=== PATIENT | female | born 1985 | race Caucasian/White ===

== ENCOUNTER → 2021-06-25 | Outpatient (CLI) | payer OTHER ==
--- NOTE | 2021-06-25 11:37 | US ---
EXAMINATION TYPE: US pelvis complete transvag DATE OF EXAM: 06/25/2021 COMPARISON: NONE CLINICAL HISTORY: N94.6 DYSMENORRHEA. Copper IUD x 12 years, left side pelvic pain now; ; irregul ar menstrual period TECHNIQUE: Transvaginal (TV) and Transabdominal (TA) . Transabdominal sonographic images of the pel vis were acquired. Transvaginal sonographic images were medically necessary to better assess the fol lowing anatomy: endometrium and IUD placement Date of LMP: 06/06/2021 EXAM MEASUREMENTS: Uterus: 8.4 x 5.2 x 3.7 cm Endometrial Stripe: 0.7 cm Right Ovary: 2.3 x 3.3 x 1.5 cm Left Ovary: 3.5 x 2.6 x 2.9 cm 1. Uterus: Anteverted 2. Endometrium: thickness size appears wnl and is by thin anechoic fluid area in upper end ometrium = 0.7 x 1.6 x 0.1cm. IUD placement is not in upper normal endometrial location, rather it is located in mid and LES. 3. Right Ovary: multifollicular with largest as involuting complex cyst with peripheral ring of colo r flow =1.9 x 1.5 x 1.4cm by TV US 4. Left Ovary: multifollicular with largest noted as complex ovarian cyst = 3.1 x 2.8 x 2.2cm Spectral, color and waveform doppler imaging shows good arterial and venous flow within the ovaries ; there is no evidence for ovarian torsion. 5. Bilateral Adnexa: wnl 6. Posterior cul-de-sac: moderate amount of free fluid seen here and is noted both TA and (TV US = 2 .1 x 1.8 x 1.9 x 0.523 = 3.8ml). IMPRESSION: 1. Complex ovarian cysts seen bilaterally may reflect hemorrhagic cysts. This can be confirmed with f ollow-up study in 6 weeks. 2. IUD placement as noted. 3. Moderate amount of free fluid within the cul-de-sac.
== END | disposition home or self-care (01) ==
LOC: RADUSWWP 10:21
PROVIDERS: ATTEND Obstetrics & Gynecology
DX: N83.291 Other ovarian cyst, right side (principal); N83.292 Other ovarian cyst, left side; Z97.5 Presence of (intrauterine) contraceptive device
CPT/HCPCS: 76830; 76856

== ENCOUNTER → 2021-06-25 | Outpatient (CLI) | payer OTHER ==
[2021-06-25 18:27] LABS: Basophils # (A) 0.03 X 10*3/uL (0.00-0.10); Basophils % (A) 0.4 %; Eosinophils # (A) 0.04 X 10*3/uL (0.04-0.35); Eosinophils % (A) 0.5 %; HCT 37.5 % (37.2-46.3); HGB 11.9 g/dL (12.0-15.0); Immature Grans, Automated 0.1 %; Lymphocytes # (A) 2.92 X 10*3/uL (0.90-5.00); Lymphocytes % (A) 35.7 %; MCH 28.7 pg (27.0-32.0); MCHC 31.7 g/dL (32.0-37.0); MCV 90.6 fL (80.0-97.0); Mean Platelet Volume 9.9 fL (9.5-12.2); Monocytes % (A) 4.9 %; NRBC Per 100 WBC 0 /100 WBCS (0.0-0.0); Neutrophils # (A) 4.78 X 10*3/uL (1.80-7.70); Neutrophils % (A) 58.4 %; Platelet Count 303 X 10*3/uL (140-440); RBC 4.14 X 10*6/uL (4.10-5.20); RDW 14.3 % (11.5-14.5); WBC 8.18 X 10*3/uL (4.50-10.00)
[2021-06-25 22:15] LABS: ALT 10 U/L (8-44); AST 16 U/L (13-35); African American GFR (CKD) 118.2 (60.0-200.0); Albumin/Globulin Ratio 2.18 (1.60-3.17); Alkaline Phosphatase 51 U/L (41-126); BUN/Creat Ratio 14.38 Ratio (12.00-20.00); Blood Urea Nitrogen 10.9 mg/dL (9.0-27.0); Calcium 9.8 mg/dL (8.7-10.3); Carbon Dioxide 21.1 mmol/L (20.0-27.5); Chloride 103 mmol/L (96-109); Chol/HDL Ratio 2.35 Ratio; Globulin 2.3 g/dL (1.6-3.3); Glucose 83 mg/dL (70-110); LDL Cholesterol,Calculated 88.4 mg/dL (0.0-131.0); Potassium 4.4 mmol/L (3.5-5.5); Sodium 138 mmol/L (135-145); Total Protein 7.2 g/dL (6.2-8.2); VLDL Calculation 15.72 mg/dL (5.00-40.00)
== END | disposition home or self-care (01) ==
LOC: LABWHC1 11:05
PROVIDERS: ATTEND Nurse Practitioner
DX: Z00.00 Encounter for general adult medical examination without abnormal findings (principal); G89.4 Chronic pain syndrome; R41.840 Attention and concentration deficit; Z86.39 Personal history of other endocrine, nutritional and metabolic disease; Z86.2 Personal history of diseases of the blood and blood-forming organs and certain disorders involving the immune mechanism
CPT/HCPCS: 36415; 80053; 80061; 82306; 83036; 84443; 85025; 86140

== ENCOUNTER → 2021-08-15 | Outpatient (CLI) | payer OTHER ==
[2021-08-15 18:12] LABS: Basophils # (A) 0.04 X 10*3/uL (0.00-0.10); Basophils % (A) 0.6 %; Eosinophils # (A) 0.05 X 10*3/uL (0.04-0.35); Eosinophils % (A) 0.7 %; HCT 36.2 % (37.2-46.3); HGB 11.5 g/dL (12.0-15.0); Immature Grans, Automated 0.3 %; Lymphocytes # (A) 2.42 X 10*3/uL (0.90-5.00); Lymphocytes % (A) 34.4 %; MCH 28.9 pg (27.0-32.0); MCHC 31.8 g/dL (32.0-37.0); Mean Platelet Volume 9.9 fL (9.5-12.2); Monocytes # (A) 0.42 X 10*3/uL (0.20-1.00); NRBC Per 100 WBC 0 /100 WBCS (0.0-0.0); Neutrophils # (A) 4.08 X 10*3/uL (1.80-7.70); Platelet Count 332 X 10*3/uL (140-440); RBC 3.98 X 10*6/uL (4.10-5.20); RDW 15.1 % (11.5-14.5); WBC 7.03 X 10*3/uL (4.50-10.00)
== END | disposition home or self-care (01) ==
LOC: LABPAT 11:03
PROVIDERS: ATTEND Obstetrics & Gynecology
DX: Z01.812 Encounter for preprocedural laboratory examination (principal)
CPT/HCPCS: 85025

== ENCOUNTER → 2021-08-15 | Outpatient (CLI) | payer OTHER ==
--- NOTE | 2021-08-15 12:55 | US ---
EXAMINATION TYPE: US pelvis complete transvag DATE OF EXAM: 08/15/2021 COMPARISON: 06/25/21 CLINICAL HISTORY: N83.299 JAH COMPLEX OVARIAN CYST. B/L COMPLEX CYST FOLLOW UP, OCCASIONAL LT ADNEXA PAIN TECHNIQUE: Transvaginal (TV) and Transabdominal (TA) . Transabdominal sonographic images of the pel vis were acquired. Transvaginal sonographic images were medically necessary to better assess the fol lowing anatomy: Ovaries Date of LMP: 07/31/2021 EXAM MEASUREMENTS: Uterus: 9.4 x 3.8 x 5.0 cm Endometrial Stripe: 1.1 cm Right Ovary: 3.8 x 3.4 x 2.5 cm Left Ovary: 4.0 x 2.9 x 1.8 cm 1. Uterus: Anteverted wnl 2. Endometrium: wnl 3. Right Ovary: Multiple follicles seen, largest appears complex melani. approx. 1.7 x 1.6 x 1.9 cm 4. Left Ovary: multiple follicles seen, largest melani. approx. 1.1 cm 5. Bilateral Adnexa: wnl 6. Posterior cul-de-sac: wnl IUD appears in lower uterine segment, multiple follicles noted on b/l ovaries, fluid noted in cervix area IMPRESSION: 1. Intrauterine device appears in the lower uterine segment correlate clinically for positioning. Sma ll amount of fluid in the cervix noted. 2. There is a complex cyst measuring 1.9 cm within the right ovary which is nonspecific. Hemorrhagic cyst most likely etiology. Other etiologies are not excluded follow-up ultrasound in 6-8 weeks recomm ended for resolution.
== END | disposition home or self-care (01) ==
LOC: RADUSWWP 11:00
PROVIDERS: ATTEND Obstetrics & Gynecology
DX: N83.201 Unspecified ovarian cyst, right side (principal); Z97.5 Presence of (intrauterine) contraceptive device
CPT/HCPCS: 76830; 76856

== ENCOUNTER 2021-08-21 06:32 | Day surgery (SDC) | payer MEDICAID ==
--- NOTE | 2021-08-20 19:42 | P.HPOB ---
History of Present Illness H&P Date: 08/20/21 Chief Complaint: Family planning This is a 36 y.o. female, 1, para 1, who presents for laparoscopic bilateral tubal ligation via fulgaration along with removal of Paragard IUD for family planning. She has had Paragard IUD in place for 12 years and recent ultrasound has shown it is in the lower uterine segment. In addition, she complains of pelvic pain. Her menses are occurring monthly and lasting 8-10 days. She did receive cardiac clearance for surgery due to heart palpatations. OB Hx: . History of 1 vaginal delivery. [employer] Admin Hx: No history of STDs Social Hx: Single. Works as [employer]. Review of Systems Constitutional: Denies chills, Denies fever Eyes: denies blurred vision, denies pain Ears, nose, mouth and throat: Denies headache, Denies sore throat Cardiovascular: Denies chest pain, Denies shortness of breath Respiratory: Denies cough Gastrointestinal: Reports abdominal pain Genitourinary: Reports dysmenorrhea, Reports menorrhagia, Reports pelvic pain Menstruation: Reports menses 8 or > days Musculoskeletal: Reports low back pain, Reports myalgias Integumentary: Denies pruritus, Denies rash Neurological: Denies numbness, Denies weakness Psychiatric: Reports anxiety, Reports irritability Endocrine: Reports weight change Past Medical History Past Medical History: Osteoarthritis (OA) Additional Past Medical History / Comment(s): hx. heart palpitations, anemia History of Any Multi-Drug Resistant Organisms: None Reported Additional Past Surgical History / Comment(s): Pilonidal cystectomy; had epidural for childbirth Past Anesthesia/Blood Transfusion Reactions: No Reported Reaction Additional Past Anesthesia/Blood Transfusion Reaction / Comment(s): no family hx. of anesthesia problems Past Psychological History: ADD/ADHD Smoking Status: Former smoker Past Alcohol Use History: Occasional Past Drug Use History: None Reported - Past Family History Mother Family Medical History: No Reported History Medications and Allergies Home Medications Medication Instructions Recorded Confirmed Type Ibuprofen [Advil] 200 mg PO Q6HR PRN 08/17/21 08/21/21 History Allergies Allergy/AdvReac Type Severity Reaction Status Date / Time peanut Allergy hives,itchi Verified 08/21/21 06:56 ng Penicillins Allergy rash,hives, Verified 08/21/21 06:56 vomiting Exam Osteopathic Statement: *. No significant issues noted on an osteopathic structural exam other than those noted in the History and Physical/Consult. HEENT: within normal limits Heart: regular rate and rhythm Lungs: clear to auscultation bilaterally Abdomen: soft, non-tender Pelvic: uterus anteverted, non-tender, left adnexa sl. tender with no adnexal masses bilaterally Extremities: neg. Brooke's. Assessment and Plan (1) Family planning Current Visit: No Status: Acute Code(s): Z30.09 - ENCOUNTER FOR [facility] AND ADVICE ON CONTRACEPTION SNOMED Code(s): 109541692 Plan: Proceed with laparoscopic bilateral tubal ligation via fulgaration and removal of IUD. I have discussed the risks, benefits, and alternative therapies for the above- mentioned procedure and for both sedation/anesthesia as well as necessary blood products administration, if indicated, as they pertain to this patient. The patient has indicated her understanding and acceptance of the risks and procedures discussed.
[~2021-08-21 06:32] MED LIST: DEXAMETHASONE SOD PHOSPHATE 4 MG/ML 1 ML VIAL IV ONE; LACTATED RINGERS 1,000 ML IV SCH; LIDOCAINE 1% (10MG/ML) FOR IV START INTRADERMA PRN; ONDANSETRON 4 MG/2 ML VIAL IVP ONE; Pre Op ABX Message 1 EACH MISC MISCELLANE ONE; SCOPOLAMINE 1 MG/72 HR PATCH TRANSDERM ONE
[2021-08-21] MEDS ORDERED: GLYCOPYRROLATE 0.2 MG/ML 2 ML VIAL ONE (07:25)
[2021-08-21] MEDS ORDERED: NEOSTIGMINE 1 MG/ML 10 ML VIAL ONE (07:25)
[2021-08-21] MEDS ORDERED: ROCURONIUM 10 MG/ML (5 ML VIAL) IV ONE (07:25)
[2021-08-21] MEDS ORDERED: SUCCINYLCHOLINE CHLORIDE 100 MG/5 ML SYR IV ONE (07:25)
[2021-08-21] MEDS ORDERED: PROPOFOL 10 MG/ML 20 ML VIAL IV ONE (07:25)
[2021-08-21] MEDS ORDERED: MIDAZOLAM 2 MG/2 ML VIAL ONE (07:25)
[2021-08-21] MEDS ORDERED: KETOROLAC 15 MG/ML 1 ML VIAL ONE (07:25)
[2021-08-21] MEDS ORDERED: fentaNYL (PF) 50 MCG/ML 2 ML AMP ONE (07:25)
[2021-08-21] MEDS ORDERED: BUPIVACAINE (PF) 0.5% 30 ML VIAL SQ ONE ×2 (07:56)
--- NOTE | 2021-08-21 08:18 | P.OP ---
Date of Procedure: 08/21/21 Preoperative Diagnosis: Family planning Postoperative Diagnosis: Same Procedure(s) Performed: Laparoscopic bilateral tubal ligation via fulguration Removal of IUD Anesthesia: HUSSAIN Surgeon: Ambreen Pickett Estimated Blood Loss (ml): 10 Pathology: none sent Condition: stable Disposition: same day Indications for Procedure: This is a 36 y.o. female, 1, para 1, who presents for laparoscopic bilateral tubal ligation via fulgaration along with removal of Paragard IUD for family planning. She has had Paragard IUD in place for 12 years and recent ultrasound has shown it is in the lower uterine segment. In addition, she complains of pelvic pain. Her menses are occurring monthly and lasting 8-10 days. She did receive cardiac clearance for surgery due to heart palpatations. Operative Findings: Uterus is anteverted and is sounded to 8-1/2 cm. On laparoscopy, normal uterus tubes and ovaries are noted. Liver edge is visualized and appears normal. Description of Procedure: The patient is taken to the operating room where she is placed in the dorsal lithotomy position. She is prepped and draped in the normal sterile fashion. Examination is performed under anesthesia. Uterus is found to be in a anteverted position. No adnexal masses were palpated. Next a bivalve speculum was placed in the patient's vagina. A single-tooth tenaculum was used to grasp the anterior lip of the cervix. A ring forcep is used to grasp the strings of the IUD and the ParaGard IUD is removed completely intact. The uterus was sounded to 8.5 cm. The kroner uterine manipulator was then inserted through the cervix and the balloon was inflated. The single-tooth tenaculum is removed speculum was removed gloves were changed and attention was turned to the abdomen. A small stab incision was made with a scalpel in the infraumbilical fold. A towel clip was placed on either side of the umbilicus for retraction. A 5 mm disposable bladeless trocar was then inserted into the peritoneal cavity under direct visualization. Once inside, pneumoperitoneum was achieved with CO2 gas. The insert was removed and the camera was placed. Intraperitoneal placement was confirmed. No bleeding was noted. Next the patient was placed in Trendelenburg position. A small stab incision was made suprapubically and a 5 mm disposable bladeless trocar was inserted into the peritoneal cavity under direct visualization. Once inside pelvic contents were inspected. Next a bipolar Kleppinger instrument was placed through the inferior trocar and the midportion of each tube was brought away from other structures and completely fulgurated on approximate 2-3 cm segment of each tube. Excellent hemostasis was noted. Pictures were taken. Pneumoperitoneum was released after the inferior trocar was removed under direct visualization. The upper trocar was then removed. The skin incisions were then closed with 4-0 Vicryl suture in a subcuticular fashion. Incisions were then injected with half percent Marcaine. Approximately 7 mL were used. Next the kroner uterine manipulator was removed. Pressure was applied with a ring forcep to the anterior lip of the cervix where there was some bleeding from the previous tenaculum site. Once the ring forcep was removed, no active bleeding was noted. All sponge and needle counts are correct. The patient is then taken to recovery room in stable condition.
[2021-08-21 08:28] VITALS: RESP 16; TEMP 98
[2021-08-21] MEDS: HYDROmorphone 0.5 MG/0.5 ML SYRINGE IVP PRN ×2 (08:39→08:46)
[2021-08-21 09:33] VITALS: BP 97/65; PULSE 85
== END 2021-08-21 09:56 | disposition home or self-care (01) ==
LOC: OR 06:32
PROVIDERS: ATTEND Obstetrics & Gynecology
DX: Z30.2 Encounter for sterilization (principal); Z88.0 Allergy status to penicillin; Z91.010 Allergy to peanuts; Z87.891 Personal history of nicotine dependence; Z80.3 Family history of malignant neoplasm of breast; Z80.49 Family history of malignant neoplasm of other genital organs; Z80.41 Family history of malignant neoplasm of ovary; Z81.8 Family history of other mental and behavioral disorders; Z82.49 Family history of ischemic heart disease and other diseases of the circulatory system; M19.90 Unspecified osteoarthritis, unspecified site; F90.9 Attention-deficit hyperactivity disorder, unspecified type; Z79.1 Long term (current) use of non-steroidal anti-inflammatories (NSAID); Z97.5 Presence of (intrauterine) contraceptive device
CPT/HCPCS: 58661; 81025; J2250; J1100; J2710; J2405; J3010; J1885; J0330; J2704; J1170

== ENCOUNTER → 2022-05-31 | Outpatient (CLI) | payer MEDICAID, OTHER ==
--- NOTE | 2022-06-01 01:28 | MR ---
EXAMINATION TYPE: MR hand LT wo con DATE OF EXAM: 05/31/2022 COMPARISON: None HISTORY: CAT BITE 6 WKS AGO ON LT 3RD KNUCKLE, INFECTION, NOT HEALING COMPLETLY Multiplanar multiecho imaging of the left hand performed with no contrast. There is some soft tissue swelling in edema around the PIP joint of the middle finger. There is very slight increased fluid signal in the base of the proximal phalanx of the middle finger. No fracture l ine seen. IMPRESSION: Soft tissue swelling and edema on the dorsum of the third MP joint. No definite focal bone destructio n. No fracture line. No significant increased fluid in the joint to suggest septic arthritis. Minimal edema in the base of the proximal phalanx of the middle finger is nonspecific.
== END | disposition home or self-care (01) ==
LOC: RADMRIMAIN 20:45
PROVIDERS: ATTEND Orthopaedic Surgery Hand Surgery
DX: M79.642 Pain in left hand (principal); R60.0 Localized edema; M79.89 Other specified soft tissue disorders

== ENCOUNTER 2022-06-12 09:48 | Day surgery (SDC) | payer OTHER ==
[2022-06-07 11:33] VITALS: BMI 24.9
--- NOTE | 2022-06-10 12:50 | P.HPOR ---
History of Present Illness H&P Date: 06/10/22 Chief Complaint: Left middle finger extensor tendon rupture Subjective: This is a 36 year old female that presents today for follow up evaluation regarding a month long history of left hand pain and weakness that developed after a cat bit her on the dorsal aspect of the left middle finger MCP joint. She had pain, swelling and drainage at the time of injury and was seen in the ED and placed on antibiotics. 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 She denies any active drainage of the hand and has noticed improvement in the appearance of the abscess. She denies any numbness or other areas of injury. She recently underwent MRI and is here to discuss results. Physical Examination: LUE: AIN/PIN/Radial/Ulnar/Median motor intact. Radial/Ulnar/Median SILT. 2+/4 Radial/Ulnar pulses palpated. 5/5 APB, 5/5 FDI. Negative Finkelsteins, negative CMC grind, negative Durkan's compression. Left middle finger swelling and mild erythema over the dorsal MCP joint. Patient has b/l palmaris longus tendons. Passive MCP ROM 0-100 of LMF without pain. Imaging: MRI of the left hand interpreted by myself demonstrates rupture of middle finger extensor tendon at level of MCP joint. Impression: 1.) Left hand cat bite/dorsal abscess 2.) Left middle finger extensor tendon rupture. Plan: Diagnosis and treatment options were discussed with the patient. She has findings concerning for extensor tendon rupture on both exam and confirmed on MRI. I recommend surgical intervention with left hand extensor tendon repair vs reconstruction with palmaris longus autograft. Risks and benefits of surgery including bleeding, infection, damage to surrounding tissue, need for further surgery, residual numbness were discussed and the patient wished to go forward with surgery. The patient was agreeable with this plan. -Jovan Talbert DO Orthopedic Hand/Upper Extremity Surgeon Past Medical History Past Medical History: Osteoarthritis (OA) Additional Past Medical History / Comment(s): HEART PALPITATIONS, ANEMIA, OCCASIONAL SCIATICA History of Any Multi-Drug Resistant Organisms: None Reported Past Surgical History: Tubal Ligation Past Anesthesia/Blood Transfusion Reactions: No Reported Reaction Smoking Status: Former smoker - Past Family History Mother Family Medical History: No Reported History Medications and Allergies Home Medications Medication Instructions Recorded Confirmed Type Ferrous Sulfate [Feosol] 325 mg PO DAILY 06/07/22 06/07/22 History Vitamin B Complex 1 each PO DAILY 06/07/22 06/07/22 History Allergies Allergy/AdvReac Type Severity Reaction Status Date / Time peanut Allergy hives,itchi Verified 06/07/22 11:24 ng Penicillins Allergy rash,hives, Verified 06/07/22 11:24 vomiting Physical Examination Osteopathic Statement: *. No significant issues noted on an osteopathic structural exam other than those noted in the History and Physical/Consult.
[~2022-06-12 09:48] MED LIST changes: +HYDROmorphone 0.5 MG/0.5 ML SYRINGE IVP PRN; -LIDOCAINE 1% (10MG/ML) FOR IV START INTRADERMA PRN; +MIDAZOLAM 2 MG/2 ML VIAL IV PRN; -Pre Op ABX Message 1 EACH MISC MISCELLANE ONE
[2022-06-12] MEDS ORDERED: MIDAZOLAM 2 MG/2 ML VIAL IVP ONE (10:35)
--- NOTE | 2022-06-12 11:05 | P.ANPRN ---
Procedure Note - Anesthesia - Nerve Block Performed Left Axillary Single Time Out Performed: Yes Date of Procedure: 06/12/22 Procedure Start Time: 10:34 Procedure Stop Time: 10:39 Indication: Acute Post-Operative Pain, Analgesia, Requested by Surgeon Sedation Type: Sedate with meaningful contact maintained Preparation: Sterile Prep Position: Supine Catheter: Indwelling Needle Types: Pajunk Needle Gauge: 21 Ultrasound used to visualize needle placement: Yes Ultrasound used to observe medication spread: Yes Injectate: 0.5% Ropivacaine (see comment for volume) (25 cc + 4mg dexamethasone) Blood Aspirated: No Pain Paresthesia on Injection Noted: No Resistance on Injection: Normal Image Stored and Saved: Yes Events: Uneventful and Well Tolerated
[2022-06-12] MEDS ORDERED: MIDAZOLAM 2 MG/2 ML VIAL ONE (11:07)
[2022-06-12] MEDS ORDERED: HEPARIN SODIUM,PORCINE 100 UNIT/ML 5 ML VIAL IV ONE (11:07)
[2022-06-12] MEDS ORDERED: KETOROLAC 15 MG/ML 1 ML VIAL ONE (11:07)
[2022-06-12] MEDS ORDERED: PROPOFOL 10 MG/ML 20 ML VIAL IV ONE (11:07)
[2022-06-12] MEDS ORDERED: ROPIVACAINE 5 MG/ML 30 ML VIAL ONE (11:07)
[2022-06-12] MEDS ORDERED: LIDOCAINE 2% INJ 20 MG/ML (2 ML VIAL) ONE (11:07)
[2022-06-12] MEDS ORDERED: LACTATED RINGERS 1,000 ML IV ONE (12:01)
[2022-06-12 12:29] VITALS: TEMP 97.2
[2022-06-12 12:41] VITALS: RESP 16
[2022-06-12 13:24] VITALS: BP 98/65; PULSE 74
--- NOTE | 2022-06-12 18:03 | P.OP ---
Date of Procedure: 06/12/22 Preoperative Diagnosis: 1.) Left middle finger extensor tendon rupture, zone V. Postoperative Diagnosis: 1.) Left middle finger extensor tendon rupture, zone V. Procedure(s) Performed: 1.) Left middle finger extensor tendon rupture primary repair, zone V. Anesthesia: GETA, regional Surgeon: Jovan Talbert Assistant Curator #1: Tay Frias Estimated Blood Loss (ml): 0 Pathology: none sent Condition: stable Disposition: PACU Description of Procedure: This is a 37 year old female who presents today for surgical intervention regarding a left middle finger extensor tendon rupture. Risks and benefits of surgery were discussed with the patient including bleeding, damage to surrounding tissue, infection, need for further surgery as well as risks of anesthesia including pulmonary embolism and even and the patient wished to proceed with surgical intervention. The patient was seen in the pre-operative area by myself. Consent and H&P were completed and updated. The correct extremity was marked in the pre-operative area by myself and all other questions were answered. Operative Narrative: The patient was brought to the operating room by the department of anesthesia. They remained on the portable stretcher and a rolling hand table was brought to the side of the operative extremity. Pre-operative time out was performed indicating the correct patient, procedure and laterality. All in the room agreed. Pre-operative antibiotics were given prior to skin incision. The patient was then drifted off to sleep by the department of anesthesia. A nonsterile tourniquet was then applied to the operative extremity and the left upper extremity was then prepped and draped in normal sterile fashion. The operative extremity was the exsanguinated with an esmarch bandage and the tourniquet was inflated to 250mmHg. Longitudinal incision was made over the dorsal aspect of the left middle finger MCP joint. Blunt dissection was taken down through subcutaneous tissues. A complete rupture of the left middle finger tendon was appreciated at the level of the MCP joint. There was abundant scar tissue located at the rupture site. This was excised with a 15 blade scalpel. Tendon ends were debrideded of non viable tissue until fresh tendon edges were identified with approximately a 1cm gap remaining which was easily covered due to proximal tendon excursion therefore decision was made to go forward with primary tendon repair. A 3-0 ethibond suture was used to perform a 4 strand core suture in cruciate fashion followed by a running 4-0 prolene suture circumfrentially around the tendon repair site. The finger had normal resting posture after repair. The wound was irrigated and closure was performed with 4-0 Monocryl suture, mastisol and steri strips. Sterile dressing with 4x4s, cast padding, splint and a volar splint was applied. Tourniquet was let down and the hand had immediate perfusion. The patient was then woken by the department of anesthesia and transferred to PACU in stable condition. Tay KRISHNAMURTHY was present to assist in major portion of the case and protection of neurovascular structures. Jovan Talbert D.O. Orthopedic Hand/Upper Extremity Surgeon
== END 2022-06-12 13:40 | disposition home or self-care (01) ==
LOC: OR 09:48
PROVIDERS: ATTEND Orthopaedic Surgery Hand Surgery
DX: S66.313A Strain of extensor muscle, fascia and tendon of left middle finger at wrist and hand level, initial encounter (principal); G89.18 Other acute postprocedural pain; D64.9 Anemia, unspecified; M19.90 Unspecified osteoarthritis, unspecified site; M54.30 Sciatica, unspecified side; Z87.891 Personal history of nicotine dependence; Z88.0 Allergy status to penicillin; Z91.010 Allergy to peanuts
CPT/HCPCS: 81025; 64415; 76942; 26418; J2250; J1642; J1100; J2405; J0690; J2795; J1885; J2704; J2001

== ENCOUNTER → 2023-12-16 | Outpatient (CLI) | payer OTHER ==
[2023-12-16 20:43] LABS: Basophils # (A) 0.03 X 10*3/uL (0.00-0.10); Basophils % (A) 0.2 %; Eosinophils # (A) 0 X 10*3/uL (0.04-0.35); Eosinophils % (A) 0 %; HCT 37.1 % (37.2-46.3); Lymphocytes # (A) 2.12 X 10*3/uL (0.90-5.00); Lymphocytes % (A) 16.7 %; MCH 28.8 pg (27.0-32.0); MCHC 32.3 g/dL (32.0-37.0); Mean Platelet Volume 9.8 FL (9.5-12.2); Monocytes # (A) 0.73 X 10*3/uL (0.20-1.00); Monocytes % (A) 5.8 %; NRBC Per 100 WBC 0 X 10*3/uL (0.00-0.01); Neutrophils # (A) 9.73 X 10*3/uL (1.80-7.70); Neutrophils % (A) 76.7 %; Platelet Count 377 X 10*3/uL (140-440); RBC 4.17 X 10*6/uL (4.10-5.20); RDW 14.6 % (11.5-14.5); WBC 12.68 X 10*3/uL (4.50-10.00)
[2023-12-16 21:25] LABS: ALT 11 U/L (8-44); AST 15 U/L (13-35); Albumin 4.6 g/dL (3.8-4.9); Albumin/Globulin Ratio 1.77 Ratio (1.60-3.17); Alkaline Phosphatase 60 U/L (41-126); BUN/Creat Ratio 17.33 Ratio (12.00-20.00); Blood Urea Nitrogen 15.6 mg/dL (9.0-27.0); Calcium 9.9 mg/dL (8.7-10.3); Carbon Dioxide 25.5 mmol/L (21.6-31.8); Chloride 102 mmol/L (96-109); Globulin 2.6 g/dL (1.6-3.3); Glucose 103 mg/dL (70-110); Potassium 4.2 mmol/L (3.5-5.5); Sodium 139 mmol/L (135-145); Total Bilirubin <0.2 mg/dL (0.3-1.2); Total Protein 7.2 g/dL (6.2-8.2)
[2023-12-16 21:59] LABS: Thyroid Peroxidase Antibodies <9.0 U/mL (0.0-33.0)
[2023-12-17 09:09] LABS: Angiotensin-1 Converting Enz. 17 U/L (8-52)
[2023-12-17 11:57] LABS: HLA B27 POSITIVE
[2023-12-17 12:52] LABS: Smooth Muscle Antibody 7 UNITS (<20)
[2023-12-17 20:46] LABS: Anti-DNA, DS unit <1.0 IU/mL; Anti-Smith Ab Interp Negative (Negative); DNA Double-Stranded Negative (Negative)
[2023-12-23 17:33] LABS: Cyclic Citrull Pep IgG Unit <1.5 U/mL (<=3.9); Cyclic Citrullinated Pep IgG Negative
== END | disposition home or self-care (01) ==
LOC: LABWHC1 13:19
PROVIDERS: ATTEND Internal Medicine
DX: H53.149 Visual discomfort, unspecified (principal); E50.7 Other ocular manifestations of vitamin A deficiency; M25.50 Pain in unspecified joint; G89.29 Other chronic pain; M54.9 Dorsalgia, unspecified; R53.83 Other fatigue; R00.2 Palpitations; R20.2 Paresthesia of skin; R11.0 Nausea; Z86.2 Personal history of diseases of the blood and blood-forming organs and certain disorders involving the immune mechanism
CPT/HCPCS: 36415; 80053; 82164; 82607; 82746; 83516; 85025; 86038; 86140; 86200; 86225; 86235; 86376; 86812